=== PATIENT | male | born 2000 | race Two or more races ===

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

== ENCOUNTER 2020-04-15 09:40 | Emergency (ER) | payer SELFPAY ==
[~2020-04-15] VITALS: Ht 177.8 cm; Wt 87.5 kg
[2020-04-15] MEDS ORDERED: cefTRIAXone SOD 1,000 MG VL IM ONE (12:15)
[2020-04-15] MEDS ORDERED: ACETAMINOPHEN 325 MG TAB PO ONE (12:15)
[2020-04-15] MEDS ORDERED: methylPREDNISolone SOD SUCC 125 MG/2 ML VL IM ONE (12:15)
[2020-04-15 12:49] VITALS: BP 136/85
== END 2020-04-15 13:07 | disposition home or self-care (01) ==
LOC: ER 09:40
DX: K04.7 Periapical abscess without sinus (principal)
CPT/HCPCS: 96372; 99284; J0696; J2930

== ENCOUNTER 2021-03-31 10:16 | Emergency (ER) | payer MEDICAID ==
[~2021-03-31] VITALS: Ht 180.3 cm; Wt 92.5 kg
[2021-03-31] MEDS ORDERED: HYDROcodone-ACET 5/325MG TAB PO ONE (13:00)
[2021-03-31] MEDS ORDERED: BACITRACIN TOP OINT 1 UD PKG TOP ONE (13:45)
[2021-03-31 13:53] VITALS: BP 136/82
== END 2021-03-31 14:37 | disposition home or self-care (01) ==
LOC: ER 10:16
DX: S81.012A Laceration without foreign body, left knee, initial encounter (principal); W26.9XXA Contact with unspecified sharp object(s), initial encounter; Y93.89 Activity, other specified; Y92.89 Other specified places as the place of occurrence of the external cause; Y99.8 Other external cause status
CPT/HCPCS: 12002; 73562

== ENCOUNTER 2024-01-23 12:18 | Emergency (ER) | payer SELFPAY ==
[~2024-01-23] VITALS: Ht 180.3 cm; Wt 80.0 kg
[2024-01-23 13:42] VITALS: BP 110/74; PULSE 79; RESP 16; TEMP 98; O2SAT 98
[2024-01-23] MEDS ORDERED: KETOROLAC TROMETH 60MG/2ML VIAL IM ONE (14:00)
[2024-01-23] MEDS: HYDROcodone-ACET 5/325MG TAB PO ONE (14:31)
== END 2024-01-23 15:33 | disposition home or self-care (01) ==
LOC: ER 12:18
DX: S89.91XA Unspecified injury of right lower leg, initial encounter (principal); J45.909 Unspecified asthma, uncomplicated; Z91.018 Allergy to other foods; Z88.6 Allergy status to analgesic agent; X58.XXXA Exposure to other specified factors, initial encounter; Y93.61 Activity, american tackle football; Y92.89 Other specified places as the place of occurrence of the external cause; Y99.8 Other external cause status
CPT/HCPCS: 73590